=== PATIENT | male | born 1955 | race Caucasian/White ===

== ENCOUNTER 2018-06-26 08:36 | Emergency (ER) | payer SELFPAY ==
[~2018-06-26] VITALS: Ht 157.5 cm; Wt 80.0 kg
[2018-06-26 08:44] VITALS: Ht 157.5 cm; Wt 80.0 kg
--- NOTE | 2018-06-26 08:52 | ERD ---
ER Documentation Chief Complaint Chief Complaint right facial numbness / numbness on the right - 4 days HPI The patient is a 62-year-old male, presenting to the ER because of right facial numbness and right facial droop for the last 4 days, increased tearing of the right eye, denies blurred vision, c/o mild right headache, denies neck pain, chest pain, dyspnea, abdominal pain, vomiting, dysuria, diarrhea. He does not smoke, drinks socially. Past medical history: Hypertension but noncompliant with medication Past surgical history: None ROS All systems reviewed and are negative except as per history of present illness. Medications Home Meds Active Scripts Nifedipine* (Nifedipine ER*) 30 Mg Tablet.sa, 30 MG PO DAILY, #14 TAB.SA Prov:DEVON URIAS MD 06/26/18 Mineral Oil/Lanolin Oil (Lacri-Lube) 3.5 Gm Oint, 1 APPLIC OP prn, #1 EA Prov:DEVON URIAS MD 06/26/18 Acyclovir* (Zovirax*) 800 Mg Tablet, 800 MG PO 5 TIMES DAILY for 7 Days, TAB Prov:DEVON URIAS MD 06/26/18 Allergies Allergies: Coded Allergies: No Known Allergy (Unverified , 06/26/18) Physical Exam Vitals Vital Signs Date Temp Pulse Resp B/P (MAP) Pulse Ox O2 O2 Flow FiO2 Time Delivery Rate 06/26/18 98.1 76 18 156/91 100 Room Air 12:50 (112) 06/26/18 59 18 184/109 98 Room Air 11:41 (134) 06/26/18 63 193/112 09:48 (139) 06/26/18 67 18 191/116 99 Room Air 09:23 (141) 06/26/18 98.0 73 19 210/135 97 08:44 (160) Physical Exam Const: No acute distress. Head: Atraumatic. Eyes: Normal Conjunctiva. ENT: Normal External Ears, Nose and Mouth. Neck: Full range of motion. No meningismus. Resp: Clear to auscultation bilaterally. Cardio: Regular rate and rhythm. Abd: Soft, non distended, normal bowel sounds, non tender. Skin: No petechiae or rashes. Back: No midline or flank tenderness. Ext: No cyanosis, or edema. Neur: Awake and alert. Right frontal muscle weakness, unable to close her eye completely, right facial droop, no focal deficit Psych: Normal Mood and Affect. Result Diagram: 06/26/1892706/26/18927 Results 24 hrs Laboratory Tests Test 06/26/18 09:28 White Blood Count 8.0 10^3/ul Red Blood Count 5.41 10^6/ul Hemoglobin 15.2 g/dl Hematocrit 45.3 % Mean Corpuscular Volume 83.7 fl Mean Corpuscular Hemoglobin 28.1 pg Mean Corpuscular Hemoglobin Concent 33.6 g/dl Red Cell Distribution Width 13.2 % Platelet Count 238 10^3/UL Mean Platelet Volume 9.8 fl Immature Granulocytes % 0.600 % Neutrophils % 62.5 % Lymphocytes % 28.5 % Monocytes % 6.6 % Eosinophils % 1.3 % Basophils % 0.5 % Nucleated Red Blood Cells % 0.0 /100WBC Immature Granulocytes # 0.050 10^3/ul Neutrophils # 5.0 10^3/ul Lymphocytes # 2.3 10^3/ul Monocytes # 0.5 10^3/ul Eosinophils # 0.1 10^3/ul Basophils # 0.0 10^3/ul Nucleated Red Blood Cells # 0.0 10^3/ul Prothrombin Time 12.5 Sec Prothrombin Time Ratio 1.0 INR International Normalized Ratio 0.92 Activated Partial Thromboplast Time 28.6 Sec Sodium Level 143 mmol/L Potassium Level 3.9 mmol/L Chloride Level 106 mmol/L Carbon Dioxide Level 24 mmol/L Anion Gap 13 Blood Urea Nitrogen 16 mg/dl Creatinine 0.82 mg/dl Est Glomerular Filtrat Rate mL/min > 60 mL/min Glucose Level 118 mg/dl Calcium Level 10.2 mg/dl Current Medications Medications Dose Sig/Van Start Time Status Last (Trade) Ordered Route PRN Stop Time Admin Dose Reason Admin Nifedipine 30 mg ONCE ONCE 06/26/18 DC 06/26/18 (Procardia PO 09:00 09:54 Xl) 06/26/18 09:01 Labetalol 20 mg ONCE ONCE 06/26/18 DC 06/26/18 HCl IV 09:00 09:32 (Labetalol) 06/26/18 09:01 Hydralazine 10 mg ONCE ONCE 06/26/18 DC 06/26/18 HCl IV 12:00 11:49 (Apresoline) 06/26/18 12:01 Procedures/[place] [id number] Radiology Main Line: [phone] DIAGNOSTIC IMAGING REPORT Patient: BEBA WARD : 1955 Age: 62 Sex: M MR #: [id number] DOS: 06/26/18 0858 Ordering MD: DEVON URIAS MD Location: E/R Room/Bed: PROCEDURE: CT head without intravenous contrast CLINICAL INDICATION: Headache. COMPARISON: None TECHNIQUE: Axial CT images from skull base to vertex with coronal and sagittal reformats. DOSE: The estimated administered radiation dose was CTDI vol = 39.34 mGy. DLP = 634.23 mGy-cm. One or more of the following dose reduction techniques were used: automated exposure control, adjustment of the mA and/or kV according to patient size, or use of iterative reconstruction. DICOM images are available. FINDINGS: Parenchyma: No acute hemorrhage, large territorial infarction, or mass. The casper-white matter junctions are intact. No space extra-axial fluid collections are present. There is mild to moderate parenchymal volume loss. There are areas of decreased attenuation involving the bilateral subcortical, periventricular regions and deep white matter consistent with mild chronic microvascular white matter ischemic disease. 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 Extra-axial spaces: No herniation or midline shift. Paranasal sinuses: Clear. Mastoids and middle ears: Clear. Visualized orbits: Normal. Vessels: [<There is calcified atherosclerotic arterial plaque identified in the bilateral distal vertebral and bilateral internal carotid arteries.>] Bones: Normal. Extracranial soft tissues: Normal. Additional comment: None. IMPRESSION: 1. No acute intracranial pathology. 2. Mild to moderate parenchymal volume loss. 3. Mild chronic microvascular white matter ischemic disease. 4. Atherosclerosis. 5. 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 RPTAT: HRSR Physician Oswaldo Date Time Electronically viewed and signed by Santosh Mir Physician on 06/26/2018 09:50 RR/ CC: DEVON URIAS MD [phone] MEDICAL MAKING DECISION: The patient is a 62-year-old male, presenting with acute Oliveira palsy, acute hypertensive emergency. He was treated with Procardia XL 30 mg p.o. and labetalol 20 mg IV and later hydralazine 10 mg IV for acute hypertensive urgency with good response The differential diagnoses considered include but are not limited to subarachnoid hemorrhage, occult trauma, CVA, meningitis, encephalitis, hypertension, tension, migraine, cluster, narcotic withdrawal, cervical spine disease. Departure Diagnosis: Primary Impression: Oliveira palsy Additional Impression: Hypertensive urgency Condition: Good Comments He was discharged with Procardia XL 30 mg daily and acyclovir, Lacri-Lube I discussed the findings with the patient. I advised the patient to follow-up with the primary physician in about 2-3 days, sooner if needed and return if any concern. Disclaimer: Inadvertent spelling and grammatical errors are likely due to EHR/dictation software use and do not reflect on the overall quality of patient care. Also, please note that the electronic time recorded on this note does not necessarily reflect the actual time of the patient encounter. DEVON URIAS MD Jun 26, 2018 08:52
[2018-06-26] MEDS ORDERED: NIFEdipine (XL) 30 MG TAB PO ONE (09:00)
[2018-06-26] MEDS ORDERED: LABETALOL HCL 20MG INJ IV ONE (09:00)
[2018-06-26] MEDS ORDERED: hydrALAzine 20 MG INJ IV ONE (12:00)
[2018-06-26 12:50] VITALS: BP 156/91; RESP 18
[2018-06-26] MEDS ORDERED: ACYC800T5 PO (13:08)
[2018-06-26] MEDS ORDERED: LACR35O OP (13:09)
[2018-06-26] MEDS ORDERED: NIFE30TA23 PO (13:10)
== END 2018-06-26 13:26 | disposition home or self-care (01) ==
LOC: E/R 08:36
DX: G51.0 Bell's palsy (principal); I10 Essential (primary) hypertension; R40.2142 Coma scale, eyes open, spontaneous, at arrival to emergency department; R40.2362 Coma scale, best motor response, obeys commands, at arrival to emergency department; R40.2252 Coma scale, best verbal response, oriented, at arrival to emergency department
CPT/HCPCS: 36415; 70450; 80048; 85025; 85610; 85730; 96374; 96375; 99285; J0360